=== PATIENT | female | born 1990 | race Caucasian/White ===

== ENCOUNTER → 2022-06-18 11:00 | Outpatient (BNVA) | payer MEDICAID, SELFPAY | PROVIDERS: PCP Nurse Practitioner Family; Visit Provider Obstetrics & Gynecology | DX: Z01.419 Encounter for gynecological examination (general) (routine) without abnormal findings (principal) | CPT/HCPCS: 87624 ==

== ENCOUNTER 2024-10-27 20:57 | Emergency (ER) | payer SELFPAY ==
[2024-10-27 21:03] VITALS: BP 134/82; PULSE 119; RESP 16; TEMP 36.9; O2SAT 97; BMI 36.0
[2024-10-28 01:31] VITALS: BP 125/75; PULSE 84; RESP 16; O2SAT 98
--- NOTE | 2024-10-28 05:46 | W.ED.SKABFB ---
HPI - Skin/Abscess/Foreign Bdy General: Chief complaint: Skin/Abscess/Foreign Body Stated complaint: Lump on pelvic area L side Time Seen by Provider: 10/28/24 05:23 Source: patient Mode of arrival: ambulatory Limitations: no limitations History of Present Illness: 34-year-old female states she has had swelling and pain to her left labia she states been going over for a few days. She states that she had no drainage she denies any fever states it is extremely painful to touch rates her pain a 6 out of 10. Denies any vomiting or diarrhea Associated symptoms: Deny chills, fever(s), nausea or vomiting Related Data Home Medications ?Medication ?Instructions ?Recorded ?Confirmed propranolol 10 mg tablet 10 mg PO DAILY PRN 08/11/23 08/11/23 Previous Rx's ?Medication ?Instructions ?Recorded hydroxyzine HCl 50 mg tablet 50 mg PO QID PRN anxiety or 08/11/23 insomnia #120 tabs lamotrigine 25 mg tablet 25 mg PO DAILY #135 tabs 08/11/23 hydrocodone 5 mg-acetaminophen 325 1 tab PO Q6H PRN pain #14 tabs 10/28/24 mg tablet sulfamethoxazole 800 1 tab PO BID 10 days #20 tabs 10/28/24 mg-trimethoprim 160 mg tablet (Bactrim DS) Allergies Allergy/AdvReac Type Severity Reaction Status Date / Time No Known Allergies Allergy Unverified 06/18/22 08:26 Review of Systems Const: Denies: fever(s), chills, body aches or change in appetite ENMT: Denies: throat pain or dental pain Card: Denies: chest pain Resp: Denies: dyspnea GI: Denies: abdominal pain, nausea, vomiting or diarrhea Musc: Denies: neck pain or back pain Skin/Breast: Reports: erythema; Denies: rash Neuro: Denies: headache(s) PFSH ED PFSH: Medical History Anxiety and depression Depressive disorder Dysplasia of cervix Herpes simplex Surgical History History of x2 History of back surgery (~2007) Family History Grandmother Cervical cancer Denies family history of Colon cancer Ovarian cancer Diabetes Heart disease Hypercholesteremia Breast cancer Hypertension Uterine cancer Thyroid disease Stroke Physical Exam Const: COMMON NORMALS: no acute distress, patient oriented x3 and healthy appearing HENMT: COMMON NORMALS: normocephalic and atraumatic HEAD & SCALP: normocephalic and atraumatic Eye: COMMON NORMALS: conjunctivae normal CONJUNCTIVA: Yes conjunctivae normal Neck/C-Spine: COMMON NORMALS: full ROM and supple Chest: COMMONS NORMALS: normal inspection of the chest Resp: COMMON NORMALS: normal respiratory effort Cardio: COMMON NORMALS: regular rate RATE: regular rate Extremity: COMMON NORMALS: normal to inspection and full ROM Neuro: COMMON NORMALS: patient oriented x3, moves all extremities and no focal motor deficits Psych: COMMON NORMALS: mental status grossly normal, Normal thought process present and cooperative THOUGHT PROCESS: Normal thought process present Skin: NARRATIVE SKIN EXAM: 3 cm abscess noted to left labia Procedures Abscess I/D Site: other (labia) Side (if applicable): left Local Anesthetic: lidocaine 1% Amount of anesthesia used (mL): 10 Technique: incised with #11 blade Irrigation: No Packing used?: iodoform Course Vital Signs: Vital signs: Vital Signs Temperature 98.5 F 10/27/24 21:03 Pulse Rate 84 10/28/24 01:31 Respiratory Rate 16 10/28/24 01:31 Blood Pressure 125/75 10/28/24 01:31 Pulse Oximetry 98 10/28/24 01:31 Oxygen Delivery Me thod Room Air 10/27/24 21:03 MDM - Skin/Abscess/Foreign Bdy Medicial Decision Making Patient presents with an abscess to left labia did incise and drain we will place her on antibiotics she stable for discharge follow-up PCP return if worsening. Medical Records I reviewed the patient's medical records. No radiology studies performed this visit Discharge Plan Discharge Patient Disposition: Home Clinical Impression: Abscess of skin or subcutaneous tissue Condition: Stable Prescriptions: New hydrocodone-acetaminophen 5-325 mg tablet 1 tab PO Q6H PRN (Reason: pain) Qty: 14 0RF sulfamethoxazole-trimethoprim [Bactrim DS] 800-160 mg tablet 1 tab PO BID 10 Days Qty: 20 0RF No Action lamotrigine 25 mg tablet 25 mg PO DAILY Qty: 135 0RF Rx Instructions: 1 tab daily for 2 weeks then two 2 tabs daily for 2 weeks then 3 tabs daily for 2 weeks then 4 tabs daily hydroxyzine HCl 50 mg tablet 50 mg PO QID PRN (Reason: anxiety or insomnia) Qty: 120 0RF propranolol 10 mg tablet 10 mg PO DAILY PRN Discharge Orders: Discharge ED (Routine); Ordered 10/28/24 Ordered By: Itzel Ogden Referrals: Brina Melton FNP [Primary Care Provider, Unknown] Discharge Diet: Advance as tolerated Discharge Activity: Resume usual activity Patient Instructions: Abscess (ED) Print Language: Niuean Coding Level of Care Code ED Process [employer] Technician for Elvis Metzger
[2024-10-28] MEDS: HYDROcodone-acetaminophen 5-325 mg Tablet 1 TAB PO (06:07)
[2024-10-28 06:15] VITALS: BP 132/102; PULSE 84; O2SAT 96
[2024-10-28 06:16] VITALS: BP 132/102; PULSE 84; O2SAT 96
== END 2024-10-28 06:15 | disposition home or self-care (01) ==
PROVIDERS: Emergency Provider Emergency Medicine; PCP Nurse Practitioner Family
DX: N76.4 Abscess of vulva (principal)
CPT/HCPCS: 56405; 99283; J9999